=== PATIENT | female | born 1980 | race Caucasian/White ===

== ENCOUNTER → 2016-12-13 | Outpatient (REF) | payer OTHER ==
[~2016-12-13] MED LIST: ACET500C OR; ACET50TA PO; IBUP600T26 PO; PRENTAB8 PO
== END ==
LOC: M LAB REF 16:26
PROVIDERS: ATTEND Physician Assistant
DX: J02.9 Acute pharyngitis, unspecified (principal)

== ENCOUNTER 2017-03-04 12:58 | Emergency (ER) | payer OTHER ==
[~2017-03-04] VITALS: Ht 162.6 cm; Wt 99.8 kg
[2017-03-04] MEDS ORDERED: NS 1,000 ML IV SCH (13:48)
[2017-03-04 14:43] LABS: BASO % 0.5 % (0.0-1.0); EOS # 0.1 K/mm3 (0.0-0.50); EOS % 1.4 % (0.0-3.0); LARGE UNSTAINED CELL # 0.1 K/mm3 (0.0-0.4); LARGE UNSTAINED CELL % 1.2 % (0.0-4.0); LYMPH # 0.8 K/mm3 (1.5-4.5); LYMPH % 10.9 % (24.0-44.0); MEAN CORPUSCULAR HEMOGLOBIN 29.9 pg (27.0-33.0); MEAN CORPUSCULAR HGB CONC 34.5 g/dl (32.0-36.5); MEAN CORPUSCULAR VOLUME 86.5 fl (80.0-96.0); MONO # 0.3 K/mm3 (0.0-0.8); MONO % 3.8 % (0.0-5.0); NEUTROPHILS # 6.1 K/mm3 (1.8-7.7); NEUTROPHILS % 82.2 % (36.0-66.0); PLATELET COUNT, AUTOMATED 206 k/mm3 (150-450); WHITE BLOOD COUNT 7.4 K/mm3 (4.0-10.0)
[2017-03-04 14:59] LABS: CONTROL LINE HCG INT CTR LINE PRESENT
[2017-03-04 15:05] LABS: ALBUMIN 3.8 GM/DL (3.2-5.2); ALKALINE PHOSPHATASE 407 U/L (45-117); ALT/SGPT 562 U/L (12-78); ANION GAP 6 MEQ/L (8-16); AST/SGOT 228 U/L (15-37); BILIRUBIN,DIRECT 0.3 MG/DL (0.0-0.2); BILIRUBIN,TOTAL 0.7 MG/DL (0.2-1.0); BLOOD UREA NITROGEN 12 MG/DL (7-18); CALCIUM LEVEL 8.6 MG/DL (8.5-10.1); CARBON DIOXIDE LEVEL 27 MEQ/L (21-32); CHLORIDE LEVEL 105 MEQ/L (98-107); GLOMERULAR FILTRATION RATE > 60.0 (>60); GLUCOSE, FASTING 115 MG/DL (70-105); SODIUM LEVEL 138 MEQ/L (136-145); TOTAL PROTEIN 7.6 GM/DL (6.4-8.2)
--- NOTE | 2017-03-04 15:29 | REP ---
Abdominal right upper quadrant ultrasound: There are no comparisons. There are multiple gallbladder calculi. These calculi measure approximately 0.5 cm in diameter. There is no gallbladder wall thickening or pericholecystic fluid. There is no intrahepatic or extrahepatic biliary duct dilatation, the common duct is 4.7 mm diameter. There is a positive Mason's sign to transducer pressure. The hepatic parenchyma is homogeneous and unremarkable. Pancreas obscured by bowel. There is no right renal hydronephrosis, calculus, mass or cyst. The right kidney is normal size 10.9 cm craniocaudad length. Impression: Cholelithiasis without evidence of acute cholecystitis. Positive Mason's sign to transducer pressure. Signed by Dez Smith MD 03/04/2017 03:20 P
[2017-03-04] MEDS ORDERED: NORCOTAB PO (15:49)
[2017-03-04 16:08] VITALS: BP 125/68
== END 2017-03-04 16:15 | disposition home or self-care (01) ==
LOC: M ED 13:45
DX: K80.50 Calculus of bile duct without cholangitis or cholecystitis without obstruction (principal); Z87.891 Personal history of nicotine dependence; Z88.2 Allergy status to sulfonamides

== ENCOUNTER → 2017-04-07 | Day surgery (SDC) | payer OTHER ==
[~2017-04-07] VITALS: Ht 165.1 cm; Wt 98.4 kg
[~2017-04-07] MED LIST changes: +BUPIVACAINE/EPIN 0.25% 30 ML VIAL As Ordered ONE; +DESFLURANE 240 ML INHALANT As Ordered ONE; +GLYCOPYRROLATE INJ 0.2 MG/ML 2 ML VIAL As Ordered ONE; +KETOROLAC 60 MG/2 ML VIAL (J1885) As Ordered ONE; +LIDOCAINE 2% INJ 100 MG/5 ML SDV (FOR ANES.) As Ordered ONE; +LR 1,000 ML IV SCH; +MIDAZOLAM INJ 2 MG/2 ML VIAL (J2250) As Ordered ONE; +NEOSTIGMINE 1MG/ML 5 ML SYRINGE (J2710) As Ordered ONE; +NORCO, ANEXSIA 5/325MG TABLET (HYDROcodone/ACETAMINOPHEN) As Ordered ONE; +NORCO, ANEXSIA 5/325MG TABLET (HYDROcodone/ACETAMINOPHEN) PO PRN; +NORCOTAB PO; +ONDANSETRON 4MG/2ML VIAL (J2405) As Ordered ONE; +ONDANSETRON 4MG/2ML VIAL (J2405) IV PRN; +PROPOFOL 200 MG/20 ML VIAL As Ordered ONE; +dexameTHASONE 4 MG/ML 1ML VIAL (J1100) As Ordered ONE; +fentaNYL 100 MCG/2 ML INJECTION (J3010) As Ordered ONE; +fentaNYL 100 MCG/2 ML INJECTION (J3010) IV PRN
[2017-04-07 10:16] LABS: CONTROL LINE UCG INT CTR LINE PRESENT
[2017-04-07 13:50] VITALS: BP 124/60
--- NOTE | 2017-04-08 00:23 | RO ---
DATE OF PROCEDURE: 04/07/2017 PREOPERATIVE DIAGNOSIS: Symptomatic cholelithiasis. POSTOPERATIVE DIAGNOSIS: Symptomatic cholelithiasis. PROCEDURE: Laparoscopic cholecystectomy. SURGEON: Dr. Dez Caballero TRANSCRIBING MACHINE OPERATOR: Dr. Escobedo ANESTHESIA: General. ESTIMATED BLOOD LOSS: 5 mL. COMPLICATIONS: None. INDICATION FOR PROCEDURE: The patient is a 36-year-old female who presents with right upper quadrant pain, found to have gallstones on ultrasound. Recommendation was to proceed with laparoscopic possible open cholecystectomy. Risk and benefits of procedure not limited to but including bleeding, infection, hernia formation, damage to surrounding structures and need for further surgery were discussed in detail with the patient. Informed consent was obtained and procedure was planned. DESCRIPTION OF PROCEDURE: The patient was brought back to operating room six after sufficient sedation and the abdomen was sterilely prepped and draped. Next, a time-out was done to confirm proper patient, proper procedure. Following that, an incision made in the left upper quadrant at Greenberg's point, Veress needle was inserted and the abdomen was insufflated to 15 mmHg. Next, a 5 mm infraumbilical incision made, 5 mm Optiview port was used to gain access to the abdomen. Once the abdomen was entered, Veress needle site was examined. There were no signs of injury. Veress needle was then removed. A 10 mm port was placed subxiphoid, two 5 mm ports in the right upper quadrant. The fundus of the gallbladder was grasped and elevated up towards the right shoulder. The cystic duct and cystic artery were both then carefully dissected free using a combination of blunt and sharp dissection. They were both then clearly identified and both doubly clipped and cut. The gallbladder was then removed from gallbladder fossa using electrocautery and was brought out through the subxiphoid port site in a 10 mm EndoCatch bag. Electrocautery was used to control hemostasis at the liver bed. The abdomen was then desufflated. Skin incisions were closed with #4-0 Vicryl subcuticular sutures, the abdomen was cleaned and dried, Steri-Strips, 4 x 4 and tape were applied, thus ending procedure.
== END | disposition home or self-care (01) ==
LOC: M SDC 09:30
PROVIDERS: ATTEND Surgery
DX: K80.10 Calculus of gallbladder with chronic cholecystitis without obstruction (principal); K21.9 Gastro-esophageal reflux disease without esophagitis; F41.9 Anxiety disorder, unspecified; Z88.2 Allergy status to sulfonamides; Z79.899 Other long term (current) drug therapy; Z87.891 Personal history of nicotine dependence
CPT/HCPCS: 47562; 84703; 88304; J0690; J1100; J1885; J2250; J2405; J2710; J3010

== ENCOUNTER 2017-04-17 20:10 | Emergency (ER) | payer OTHER ==
[~2017-04-17] VITALS: Ht 165.1 cm; Wt 96.6 kg
[~2017-04-17 20:10] MED LIST changes: -BUPIVACAINE/EPIN 0.25% 30 ML VIAL As Ordered ONE; -DESFLURANE 240 ML INHALANT As Ordered ONE; -GLYCOPYRROLATE INJ 0.2 MG/ML 2 ML VIAL As Ordered ONE; -KETOROLAC 60 MG/2 ML VIAL (J1885) As Ordered ONE; -LIDOCAINE 2% INJ 100 MG/5 ML SDV (FOR ANES.) As Ordered ONE; -LR 1,000 ML IV SCH; -MIDAZOLAM INJ 2 MG/2 ML VIAL (J2250) As Ordered ONE; -NEOSTIGMINE 1MG/ML 5 ML SYRINGE (J2710) As Ordered ONE; -NORCO, ANEXSIA 5/325MG TABLET (HYDROcodone/ACETAMINOPHEN) As Ordered ONE; -NORCO, ANEXSIA 5/325MG TABLET (HYDROcodone/ACETAMINOPHEN) PO PRN; -ONDANSETRON 4MG/2ML VIAL (J2405) As Ordered ONE; -ONDANSETRON 4MG/2ML VIAL (J2405) IV PRN; -PROPOFOL 200 MG/20 ML VIAL As Ordered ONE; -dexameTHASONE 4 MG/ML 1ML VIAL (J1100) As Ordered ONE; -fentaNYL 100 MCG/2 ML INJECTION (J3010) As Ordered ONE; -fentaNYL 100 MCG/2 ML INJECTION (J3010) IV PRN
[2017-04-17 20:12] VITALS: BP 129/64
== END 2017-04-17 22:48 | disposition home or self-care (01) ==
LOC: M ED 21:54
DX: R10.11 Right upper quadrant pain (principal); Z90.49 Acquired absence of other specified parts of digestive tract; Z88.2 Allergy status to sulfonamides

== ENCOUNTER → 2017-10-02 | Outpatient (REF) | payer OTHER | LOC: M LAB REF 12:38 | PROVIDERS: ATTEND Physician Assistant | DX: R30.0 Dysuria (principal) ==

== ENCOUNTER → 2018-07-26 | Outpatient (CLI) | payer OTHER | LOC: M WUC 18:35 | DX: M79.672 Pain in left foot (principal) | CPT/HCPCS: 73630 ==

== ENCOUNTER → 2019-02-11 | Outpatient (REF) | payer OTHER | LOC: M LAB REF 16:41 | PROVIDERS: ATTEND Physician Assistant | DX: J02.9 Acute pharyngitis, unspecified (principal) ==

== ENCOUNTER → 2019-03-26 | Outpatient (CLI) | payer OTHER ==
[~2019-03-26] MED LIST changes: -ACET50TA PO; +HYDR-3715 PO; +MAPA500T17 PO; -NORCOTAB PO
--- NOTE | 2019-03-26 09:23 | REP ---
Clinical: Pain. Technique: AP and lateral views of the right ankle. Findings: Mild/moderate swelling is suggested and should be correlated clinically. Osseous structures and joint spaces are intact. No acute fracture or dislocation. Impression: Swelling. No acute fracture or dislocation. Electronically Signed by Vimal Cazares MD 03/26/2019 09:14 A
== END ==
LOC: M WUC 08:17
PROVIDERS: ATTEND Nurse Practitioner Adult Health
DX: M25.571 Pain in right ankle and joints of right foot (principal)

== ENCOUNTER → 2019-05-17 | Outpatient (REF) | payer OTHER | LOC: M LAB REF 10:05 | PROVIDERS: ATTEND Physician Assistant | DX: R30.0 Dysuria (principal) ==

== ENCOUNTER → 2019-06-11 | Outpatient (CLI) | payer OTHER ==
--- NOTE | 2019-06-11 16:16 | REP ---
Right wrist four views : There is no fracture or dislocation. Mineralization and joint spaces are normal. There are no calcifications or foreign bodies. Impression: Negative right wrist Left wrist four views : There is no fracture or dislocation. Mineralization and joint spaces are normal. There are no calcifications or foreign bodies. Impression: Negative left wrist . Electronically Signed by Dez Smith MD 06/11/2019 04:08 P
--- NOTE | 2019-06-11 16:18 | REP ---
Right hand four views : There is no fracture or dislocation. Mineralization and joint spaces are normal. There are no calcifications or foreign bodies. Impression: Negative right hand. Left hand four views : There is no fracture or dislocation. Mineralization and joint spaces are normal. There are no calcifications or foreign bodies. Impression: Negative left hand. Electronically Signed by Dez Smith MD 06/11/2019 04:10 P
== END ==
LOC: M WUC 15:16
PROVIDERS: ATTEND Nurse Practitioner Adult Health
DX: M25.549 Pain in joints of unspecified hand (principal)

== ENCOUNTER → 2019-10-27 | Outpatient (CLI) | payer OTHER ==
[2019-10-27 13:16] LABS: BASO # 0.1 10^3/uL (0.0-0.2); BASO % 1.2 % (0.0-1.0); EOS # 0.1 10^3/uL (0.0-0.5); EOS % 2.1 % (0.0-3.0); HEMATOCRIT 37.6 % (36.0-47.0); HEMOGLOBIN 11.6 g/dl (12.0-15.5); LYMPH # 1.2 10^3/uL (1.5-5.0); LYMPH % 17.7 % (24.0-44.0); MEAN CORPUSCULAR HEMOGLOBIN 28.1 pg (27.0-33.0); MEAN CORPUSCULAR HGB CONC 30.9 g/dl (32.0-36.5); MONO # 0.5 10^3/uL (0.0-0.8); MONO % 7.6 % (0.0-5.0); NEUTROPHILS # 4.8 10^3/uL (1.5-8.5); NEUTROPHILS % 71.3 % (36.0-66.0); PLATELET COUNT, AUTOMATED 267 10^3/uL (150-450); RED BLOOD COUNT 4.13 10^6/uL (4.00-5.40); WHITE BLOOD COUNT 6.7 10^3/uL (4.0-10.0)
[2019-10-27 13:29] LABS: ALBUMIN 3.8 GM/DL (3.2-5.2); BILIRUBIN,TOTAL 0.6 MG/DL (0.2-1.0); CALCIUM LEVEL 8.8 MG/DL (8.5-10.1); CHOLESTEROL RISK RATIO 4.152 (<5); CREATININE FOR GFR 1.17 MG/DL (0.55-1.30); GLOMERULAR FILTRATION RATE 54.5 (>58); POTASSIUM SERUM 4.1 MEQ/L (3.5-5.1); THYROID STIMULATING HORMONE 2.25 uIU/ML (0.358-3.740); TOTAL PROTEIN 7.4 GM/DL (6.4-8.2)
[2019-10-27 13:57] LABS: HEMOGLOBIN A1c 4.6 %
== END ==
LOC: M WUC 08:50
PROVIDERS: ATTEND Nurse Practitioner Adult Health
DX: I10 Essential (primary) hypertension (principal); Z83.42 Family history of familial hypercholesterolemia; Z82.49 Family history of ischemic heart disease and other diseases of the circulatory system

== ENCOUNTER → 2020-11-17 | Outpatient (CLI) | payer OTHER ==
--- NOTE | 2020-11-17 10:27 | REP ---
INDICATION: CONRAD SCR MAMMO/Z12.31. COMPARISON: None, baseline study. TECHNIQUE: MLO and CC views performed bilaterally with tomosynthesis. FINDINGS: There is mild scattered fibroglandular tissue present. There is a 4 mm nodule posteriorly in the right breast somewhat inferiorly, smoothly marginated. In the lower outer left breast there is a smoothly marginated nodule 7 mm in diameter. No other mass is seen. There are no clustered microcalcifications. The Volpara volumetric breast density pattern is B. IMPRESSION: BIRADS/ACR category 0 incomplete. Smoothly marginated nodule is seen in each breast. Recommend spot compression views and ultrasound bilaterally to further evaluate. This patient's Tyrer-Cuzick lifetime breast cancer risk assessment score is 10.3%. This mammogram was interpreted with the aid of an FDA-approved computer-aided detection system. The patient states she had a clinical breast exam in October 2020. The patient letter being requested is M0. RECOMMENDATION: Recommend bilateral spot compression views and ultrasound. <Electronically signed by Dez Chaparro > 11/17/20 1025
== END ==
LOC: M WHC 09:19
PROVIDERS: ATTEND Obstetrics & Gynecology
DX: R92.8 Other abnormal and inconclusive findings on diagnostic imaging of breast (principal); N63.12 Unspecified lump in the right breast, upper inner quadrant; N63.23 Unspecified lump in the left breast, lower outer quadrant

== ENCOUNTER → 2023-03-06 | Outpatient (REF) | payer OTHER | LOC: M LAB REF 09:35 | PROVIDERS: ATTEND Physician Assistant | DX: N30.00 Acute cystitis without hematuria (principal) ==